=== PATIENT | female | born 1955 | race American Indian/Alaskan Native ===

== ENCOUNTER 2017-01-21 21:58 | Inpatient (IN) | payer MEDICARE ==
[2017-01-21 23:11] LABS: Basophils % (Auto) 0.7 % (0.0-1.8); Eosinophils % (Auto) 2.4 % (0.0-4.3); Hematocrit 37.4 % (30.3-42.9); Hemoglobin 12.2 gm/dl (10.1-14.3); Mean Corpuscular HGB Conc 33 % (30-34); Mean Corpuscular Hemoglobin 26 pg (28-32); Mean Corpuscular Volume 78 fl (79-97); Platelet Count 285 K/mm3 (140-440); Red Cell Distribution Width 15.7 % (13.2-15.2); White Blood Count 8.6 K/mm3 (4.5-11.0)
[2017-01-21 23:20] LABS: INR 0.96 (0.87-1.13)
[2017-01-21 23:26] LABS: Anion Gap 18 mmol/L; BUN/Creatinine Ratio 14.28; Blood Urea Nitrogen 10 mg/dL (7-17); Calcium 8.7 mg/dL (8.4-10.2); Carbon Dioxide 27 mmol/L (22-30); Chloride 104.7 mmol/L (98-107); Glucose 103 mg/dL (65-100); Potassium 3.6 mmol/L (3.6-5.0); Sodium 146 mmol/L (137-145)
--- NOTE | 2017-01-22 08:30 | Emergency Department Report ---
ED General Adult HPI - General Chief complaint: Chest Pain Stated complaint: CHEST PAIN/MH EVAL Time Seen by Provider: 01/22/17 08:27 Source: patient Mode of arrival: Stretcher Limitations: No Limitations - History of Present Illness Initial comments: Patient states that she has a bipolar disorder and she is noncompliant with her medications. She told the nurses that she wanted to lay in the road so car would run over her. She admits to depression and suicidal ideation. When I entered the room the patient told me she didn't want to be hooked up to the radiographer cardiac catheterization because the monitor is talking to her. She said this with berta indifference and was not at all agitated. Not withstanding this the patient states that she has chest pain on exertion which started yesterday and lasted for 2-1/2 hours. While I was talking to her she said that it actually was still present. She states the pain radiates to her right arm. She does not complain of associated symptoms. The patient tells me that she has a history of atrial fibrillation. She is no longer on anticoagulants or any other medicines. She claims that she was treated for this and a "minor heart attack" 5 years ago at . -: days(s) Location: chest Radiation: other (r arm) Severity scale (0 -10): 7 Quality: aching Improves with: none Worsens with: none Associated Symptoms: denies other symptoms Treatments Prior to Arrival: none - Related Data Home Medications Medication Instructions Recorded Confirmed Last Taken No Known Home Medications [No 01/22/17 01/22/17 Unknown Reported Home Medications] Allergies Allergy/AdvReac Type Severity Reaction Status Date / Time No Known Allergies Allergy Unverified 01/21/17 22:29 ED Review of Systems ROS: Stated complaint: CHEST PAIN/MH EVAL Other details as noted in HPI Constitutional: denies: chills, fever Eyes: denies: eye pain, eye discharge, vision change ENT: denies: ear pain, throat pain Respiratory: denies: cough, shortness of breath, wheezing Cardiovascular: chest pain. denies: palpitations Endocrine: no symptoms reported Gastrointestinal: denies: abdominal pain, nausea, diarrhea Genitourinary: denies: urgency, dysuria, discharge Musculoskeletal: denies: back pain, joint swelling, arthralgia Skin: denies: rash, lesions Neurological: denies: headache, weakness, paresthesias Psychiatric: depression, suicidal thoughts. denies: anxiety Hematological/Lymphatic: denies: easy bleeding, easy bruising ED Past Medical Hx - Past Medical History Previous Medical History?: Yes Hx Hypertension: Yes Hx Psychiatric Treatment: Yes Additional medical history: a fib, ddd, - Surgical History Past Surgical History?: No - Social History Substance Use Type: None - Medications Home Medications: Home Medications Medication Instructions Recorded Confirmed Last Taken Type No Known Home Medications [No 01/22/17 01/22/17 Unknown History Reported Home Medications] ED Physical Exam - General Limitations: No Limitations General appearance: alert, in no apparent distress - Head Head exam: Present: atraumatic, normocephalic - Eye Eye exam: Present: normal appearance, PERRL, EOMI. Absent: scleral icterus - ENT ENT exam: Present: normal exam, mucous membranes moist - Neck Neck exam: Present: normal inspection - Respiratory Respiratory exam: Present: normal lung sounds bilaterally. Absent: respiratory distress - Cardiovascular Cardiovascular Exam: Present: regular rate, normal rhythm. Absent: systolic murmur, diastolic murmur, rubs, gallop - GI/Abdominal GI/Abdominal exam: Present: soft, normal bowel sounds. Absent: distended, tenderness, guarding, rebound, rigid - Extremities Exam Extremities exam: Present: normal inspection, normal capillary refill. Absent: tenderness, pedal edema, joint swelling, calf tenderness - Back Exam Back exam: Present: normal inspection - Neurological Exam Neurological exam: Present: alert, oriented X3, CN II-XII intact. Absent: motor sensory deficit - Psychiatric Psychiatric exam: Present: normal affect, normal mood - Skin Skin exam: Present: warm, dry, intact, normal color. Absent: rash ED Course Vital Signs 01/21/17 01/22/17 01/22/17 22:06 05:52 08:44 Temperature 98.7 F 98.3 F 98.4 F Pulse Rate 76 74 78 Respiratory 17 16 16 Rate Blood Pressure 186/106 139/85 Blood Pressure 174/78 [Left] O2 Sat by Pulse 100 99 99 Oximetry - Reevaluation(s) Reevaluation #1: The patient has the potential risk factors for coronary artery disease. Therefore she will be admitted to the hospitalist service for medical clearance prior to psychiatric disposition complete her medical clearance. I will issue a 1013. 01/22/17 10:40 ED Medical Decision Making - Lab Data Result diagrams: 01/21/17 22:52 01/21/17 22:52 Laboratory Results - last 24 hr 01/21/17 01/21/17 01/21/17 22:52 22:52 22:52 WBC 8.6 RBC 4.80 Hgb 12.2 Hct 37.4 MCV 78 L MCH 26 L MCHC 33 RDW 15.7 H Plt Count 285 Lymph % (Auto) 32.5 [place] % (Auto) 7.2 Eos % (Auto) 2.4 Baso % (Auto) 0.7 Lymph # 2.8 [place] # 0.6 Eos # 0.2 Baso # 0.1 Seg Neutrophils % 57.2 Seg Neutrophils # 4.9 PT INR APTT Sodium 146 H Potassium 3.6 Chloride 104.7 Carbon Dioxide 27 Anion Gap 18 BUN 10 Creatinine 0.7 Estimated GFR > 60 BUN/Creatinine Ratio 14.28 Glucose 103 H Calcium 8.7 Troponin T < 0.010 HCG, Qual Negative 01/21/17 01/22/17 01/22/17 22:52 03:01 04:28 WBC RBC Hgb Hct MCV MCH MCHC RDW Plt Count Lymph % (Auto) [place] % (Auto) Eos % (Auto) Baso % (Auto) Lymph # [place] # Eos # Baso # Seg Neutrophils % Seg Neutrophils # PT 13.3 INR 0.96 APTT 31.0 Sodium Potassium Chloride Carbon Dioxide Anion Gap BUN Creatinine Estimated GFR BUN/Creatinine Ratio Glucose Calcium Troponin T < 0.010 < 0.010 HCG, Qual - EKG Data -: EKG Interpreted by Pa EKG shows normal: sinus rhythm, axis, intervals, QRS complexes, ST-T waves Rate: normal (some sinus arrhythmia.) - EKG Data Interpretation: no acute changes (serial EKGs no acute changes no interval changes) - Radiology Data Radiology results: pending Critical care attestation.: If time is entered above; I have spent that time in minutes in the direct care of this critically ill patient, excluding procedure time. ED Disposition Clinical Impression: Uncontrolled hypertension, Suicidal ideation Chest pain Qualifiers: Chest pain type: unspecified Qualified Code(s): R07.9 - Chest pain, unspecified Bipolar disorder Qualifiers: Active/Remission status: currently active Current bipolar episode type: depressed Current episode severity: severe Psychotic features: with psychotic features Qualified Code(s): F31.5 - Bipolar disorder, current episode depressed , severe, with psychotic features Disposition: DC-09 OP ADMIT IP TO THIS HOSP Is pt being admited?: Yes Does the pt Need Aspirin: Yes Condition: Stable Instructions: Hypertension (ED) Referrals: TRENT GERARDO MD [Primary Care Provider] - 3-5 Days Time of Disposition: 10:50
--- NOTE | 2017-01-22 10:27 | History and Physical Report ---
History of Present Illness Date of examination: 01/22/17 Chief complaint: Hearing voices History of present illness: 61-year-old -Citizen Of [place] female with past medical history significant for bipolar disorder, major depressive disorder, hypertension, A. fib, medication noncompliance presented to the emergency department complaining that she is heaving voices. She said she heard from Devil which tell her "lay down and ", she heard from God "keep going". Patient also expressed suicidal ideation, stating that she wanted to drive towards train track and want to be strike by train and . Patient claimed she was diagnosed with A. fib 4 years ago and she to look Coumadin for a while and discontinued. She didn't have any symptoms after that. Patient has hypertension and taking no medications. She said she has been in and out of mental institutions and was treated for bipolar and major depression but she didn't take any medication for the last 1 year. Patient didn't know what medications she has been taking. Patient also complains left-sided chest pain, sharp to aching type pain, 6 out of 10 in intensity, with radiation to the right arm, associated with mild shortness of breath and nausea. Patient denied palpitation, diaphoresis, vomiting. REVIEW OF SYSTEMS: GENERAL: no weight change, no fatigue, no fever HEAD: no head ache EYES: no blurry vision, no acute visual loss EARS: no hearing loss, no discharge, no earache NOSE: no stuffiness, no sneezing, no discharge MOUTH, THROAT AND NECK: no bleeding gums, no sore throat, no swollen neck CARDIAC: no palpitations, + dyspnea on exertion, no orthopnea, no PND, no edema , + chest pain RESPIRATORY: no shortness of breath, no wheeze, no cough, no sputum, no hemoptysis, no asthma GI: no decreased appetite, no nausea, no vomiting, no dysphagia, no diarrhea, no constipation, no abdominal pain URINARY: no change in frequency, no urgency, no polyuria, no hematuria, no incontinence MUSCULOSKELETAL: no muscle weakness, no pain, no joint stiffness NEUROLOGIC: no loss of sensation/numbness, no tingling, no tremors, no weakness/ paralysis HEMATOLOGIC: no anemia, no easy bruising SKIN: no rashes ENDOCRINE: no heat/cold intolerance, no polyuria, no polydipsia, no thyroid problems, no diabetes PSYCHIATRIC: no anxiety, no depression, + suicidal ideations Past History Past Medical History: atrial fib, hypertension, other (bipolar disorder, major depression. ) Past Surgical History: No surgical history Social history: smoking (smokes occasionally cigarettes and marijuana if she gets.), full code. denies: alcohol abuse, prescription drug abuse, IV drug use Family history: other (mentally illness runs in the family) Medications and Allergies Allergies Allergy/AdvReac Type Severity Reaction Status Date / Time No Known Allergies Allergy Unverified 01/21/17 22:29 Home Medications Medication Instructions Recorded Confirmed Last Taken Type ALPRAZolam [Xanax TAB] 2 mg PO TID PRN 01/22/17 01/22/17 Unknown History Exam - Physical Exam Narrative exam: Not in cardiopulmonary distress. The patient is obese. Vital signs as documented. Head exam is unremarkable. No scleral icterus . Neck is without jugular venous distension, thyromegaly, or carotid bruits. Lungs are clear to auscultation. Cardiac exam reveals regular rate and Rhythm. First and second heart sounds normal. No murmurs, rubs or gallops. Abdominal exam reveals normal bowel sounds, no masses, no organomegaly and no aortic enlargement. Extremities are nonedematous and both femoral and pedal pulses are normal. CASING GRADER: Alert and oriented 3. No focal weakness. - Constitutional Vitals: Temp Pulse Resp BP Pulse Ox 98.4 F 78 16 174/78 99 01/22/17 08:44 01/22/17 08:44 01/22/17 08:44 01/22/17 08:44 01/22/17 08:44 Results - Labs CBC & Chem 7: 01/21/17 22:52 01/21/17 22:52 Labs: Laboratory Last Values WBC 8.6 K/mm3 (4.5-11.0) 01/21/17 22:52 RBC 4.80 M/mm3 (3.65-5.03) 01/21/17 22:52 Hgb 12.2 gm/dl (10.1-14.3) 01/21/17 22:52 Hct 37.4 % (30.3-42.9) 01/21/17 22:52 MCV 78 fl (79-97) L 01/21/17 22:52 MCH 26 pg (28-32) L 01/21/17 22:52 MCHC 33 % (30-34) 01/21/17 22:52 RDW 15.7 % (13.2-15.2) H 01/21/17 22:52 Plt Count 285 K/mm3 (140-440) 01/21/17 22:52 Lymph % (Auto) 32.5 % (13.4-35.0) 01/21/17 22:52 [place] % (Auto) 7.2 % (0.0-7.3) 01/21/17 22:52 Eos % (Auto) 2.4 % (0.0-4.3) 01/21/17 22:52 Baso % (Auto) 0.7 % (0.0-1.8) 01/21/17 22:52 Lymph # 2.8 K/mm3 (1.2-5.4) 01/21/17 22:52 [place] # 0.6 K/mm3 (0.0-0.8) 01/21/17 22:52 Eos # 0.2 K/mm3 (0.0-0.4) 01/21/17 22:52 Baso # 0.1 K/mm3 (0.0-0.1) 01/21/17 22:52 Seg Neutrophils % 57.2 % (40.0-70.0) 01/21/17 22:52 Seg Neutrophils # 4.9 K/mm3 (1.8-7.7) 01/21/17 22:52 PT 13.3 Sec. (12.2-14.9) 01/21/17 22:52 INR 0.96 (0.87-1.13) 01/21/17 22:52 APTT 31.0 Sec. (24.2-36.6) 01/21/17 22:52 Sodium 146 mmol/L (137-145) H 01/21/17 22:52 Potassium 3.6 mmol/L (3.6-5.0) 01/21/17 22:52 Chloride 104.7 mmol/L (98-107) 01/21/17 22:52 Carbon Dioxide 27 mmol/L (22-30) 01/21/17 22:52 Anion Gap 18 mmol/L 01/21/17 22:52 BUN 10 mg/dL (7-17) 01/21/17 22:52 Creatinine 0.7 mg/dL (0.7-1.2) 01/21/17 22:52 Estimated GFR > 60 ml/min 01/21/17 22:52 BUN/Creatinine Ratio 14.28 % 01/21/17 22:52 Glucose 103 mg/dL (65-100) H 01/21/17 22:52 Calcium 8.7 mg/dL (8.4-10.2) 01/21/17 22:52 Troponin T < 0.010 ng/mL (0.00-0.029) 01/22/17 04:28 HCG, Qual Negative (Negative) 01/21/17 22:52 Assessment and Plan Assessment and plan: Major depression, bipolar disorder, suicidal ideation - Patient has consented placed - Patient is on 1013 Anxiety - Patient is on home dose of Xanax Chest pain -Cardiac enzymes are negative -Stress test is ordered History of A. fib -Patient is currently in sinus rhythm and rate is controlled Hypertension - Uncontrolled Patient is started on amlodipine DVT prophylaxis - On Lovenox Disposition - Admit to medical floor. Advance Directives: Yes VTE prophylaxis?: Chemical Plan of care discussed with patient/family: Yes
[2017-01-22] MEDS ORDERED: ASPIRIN PO ONE (10:49)
[2017-01-22] MEDS ORDERED: NITRO-BID 2% TP ONE (10:49)
--- NOTE | 2017-01-22 11:30 | XRay Report ---
AP CHEST: HISTORY: Hypertension AP view of the chest demonstrates a normal mediastinal and cardiac contour with clear lungs and normal bony and soft tissue structures. IMPRESSION: Unremarkable AP chest.
--- NOTE | 2017-01-22 11:50 | Admit Criteria Form ---
Admission Criteria Documentation: GENERAL ADMISSION CRITERIA (Place 'X' for any and all applicable criteria): Admission is indicated for ANY ONE of the following: [ ]I. Hemodynamic instability as indicated by ANY ONE of the following(1)(2) (3)(4)(5): [ ]a) Vital sign abnormality not readily corrected by appropriate treatment within 12 to 24 hours indicated by ANY ONE of the following: [ ]i) Hypotension [ ]ii) Symptomatic Tachycardia unresponsive to treatment (eg , analgesia, fluids, sedation as indicated) [ ]iii) Orthostatic vital sign changes unresponsive to treatment (eg, fluids) [ ]b) Vital sign abnormality that is severe indicated by ANY ONE of the following: [ ]i) Inadequate perfusion indicated by ANY ONE of the following: [ ]1) Lactic acidosis (greater than 2 mmol/L) [ ]2) New abnormal capillary refill (greater than 3 seconds) [ ]3) Other metabolic acidosis (arterial pH less than 7.35) not otherwise explained [ ]4) Reduced urine output [ ]5) Altered mental status [ ]6) Myocardial Ischemia [ ]v) Mean arterial pressure[A] less than 60 mm Hg [ ]vi) Mean arterial pressure[A] less than 70 mm Hg after 30 minutes of appropriate treatment (eg, fluid resuscitation) [ ]vii) IV inotropic or vasopressor medication required to maintain adequate blood pressure or perfusion [ ]viii) Sustained heart rate greater than 120 beats per minute in adult or child 6 years or older[B]] [ ]II. Hypertension requiring inpatient treatment as indicated by ANY ONE of the following(6)(7)(8): [ ]a) SBP greater than 220 mm Hg or DBP greater than 120 mm Hg despite treatment [ ]b) SBP greater than 140 mm Hg or DBP greater than 100 mm Hg with evidence of acute end organ damage as indicated by ANY ONE of the following: [ ]i) Encephalopathy [ ]ii) Acute renal failure as indicated by new onset of ANY ONE of the following(9)(10)(11)(12)(13): [ ]1) A 3-fold rise in serum creatinine from baseline [ ]2) Serum creatinine greater than 4 mg/dL ( 354 micromoles/L) with acute rise greater than 0.5 mg/dL (44.2 micromoles/L) [ ]3) Reduction of more than 75% in estimated glomerular filtration rate from baseline [ ]4) Estimated glomerular filtration rate less than 35 mL/min/1.73m2 (0.59 mL/sec/1.73m2) in child up to 18 years of age [ ]5) Cessation of urine output indicated by ALL of the following: [ ]A. Adequate volume status [ ]B. Inadequate urine output as indicated by ANY ONE of the following: [ ]a. Urine output less than 0.3 mL/kg/hr for 24 hours [ ]b. Anuria (urine output less than 0.1 mL/kg/hr) for 12 hours [ ]iii) Aortic dissection [ ]iv) Myocardial ischemia [ ]v) Left ventricular heart failure [ ]vi) Retinal hemorrhage [ ]vii) Other significant finding [ ]c) Hypertension in child requiring inpatient treatment as indicated by ALL of the following(14)(15)(16): [ ]i) Outpatient treatment not effective, not available, or not appropriate [ ]ii) SBP or DBP greater than 95th percentile for age [ ]iii) Evidence of acute end organ damage as indicated by ANY ONE of the following: [ ]1) Altered mental status [ ]2) Acute renal failure as indicated by new onset of ANY ONE of the following(9)(10)(11)(12)(13): [ ]A. A 3-fold rise in serum creatinine from baseline [ ]B. Serum creatinine greater than 4 mg/dL (354 micromoles/L) with acute rise greater than 0.5 mg/dL (44.2 micromoles/L) [ ]C. Reduction of more than 75% in estimated glomerular filtration rate from baseline [ ]D. Estimated glomerular filtration rate less than 35 mL/min/1.73m2 (0.59 mL/sec/1.73m2)in child up to 18 years of age [ ]E. Cessation of urine output indicated by ALL of the following: [ ]a. Adequate volume status [ ]b. Inadequate urine output as indicated by ANY ONE of the following: [ ]1) Urine output less than 0.3 mL/kg/hr for 24 hours [ ]2) Anuria (urine output less than 0.1 mL/kg/hr) for 12 hours [ ]3) Severe headache [ ]4) Visual disturbance [ ]5) Retinal hemorrhage [ ]6) Other significant finding [ ]III. Acute cardiac or peripheral ischemia as indicated by ANY ONE of the following: [ ]a) Acute coronary syndrome(17)(18) [ ]b) Acute peripheral ischemia (eg, pulseless, cool, mottled, or cyanotic extremity)(19) [ ]IV. Cardiac arrhythmias or findings of immediate concern indicated by ANY ONE of the following(20)(21): [ ]a) Heart rhythms that are inherently dangerous or unstable indicated by ANY ONE of the following(22)(23)(24): [ ]i) Resuscitated ventricular fibrillation or cardiac arrest [ ]ii) Ventricular escape rhythm [ ]iii) Sustained ventricular tachycardia (30 seconds or more of ventricular rhythm at greater than 100 beats per minute) [ ]iv) Nonsustained ventricular tachycardia and ANY ONE of the following: [ ]1) Suspected cardiac ischemia as cause or consequence of ventricular tachycardia [ ]2) In setting of acute myocarditis [ ]b) Unstable cardiac conduction defects indicated by ANY ONE of the following(24)(25)(26): [ ]i) Type II second-degree atrioventricular block [ ]ii) Third-degree atrioventricular block [ ]iii) New-onset left bundle branch block with suspected myocardial ischemia [ ]c) Any heart rhythm and ANY ONE of the following(22)(23)(27)(28)( 29): [ ] i) Continuous long-term ECG monitoring needed (eg, initiation of drug requiring monitoring for more than 24 hours) [ ] ii) Patient has automatic implanted cardioverter defibrillator that is repeatedly firing, malfunctioning, or in need of immediate adjustment of settings beyond the scope of ambulatory or observation care. [ ]d) Heart rhythms of concern due to ANY ONE of the following: [ ]i) Hypotension [ ]ii) Respiratory distress [ ]iii) Association with other significant symptoms (eg, bradycardia with syncope or ongoing dizziness, supraventricular tachycardia with chest pain) (27)(28) (30) [ ] V. Severe heart failure as indicated by ANY ONE of the following ( 31)(32): [ ]a) Respiratory distress [ ]b) Hypotension [ ]c) Anasarca (refractory to outpatient therapy) [ ]d) Cardiac arrhythmias of immediate concern [ ]e) Myocardial ischemia [ ]. Respiratory abnormalities, including ANY ONE of the following(33)(34) (35)(36): [ ]a) Respiratory rate greater than 30 breaths per minute unresponsive to treatment [A] [ ]b) New saturation of arterial oxygen less than 90% [ ]c) New partial pressure of carbon dioxide greater than 44 mm Hg ( 5.9 kPa) [ ]d) Supplemental oxygen or respiratory treatments needed that are new or not performable at other levels of care [ ]e) New-onset cyanosis [ ]f) Inability to protect airway [ ]g) Chronic lung disease with severe deterioration (not responsive to emergency and observation care treatment as appropriate) as indicated by ANY ONE of the following(34)(36 ): [ ]i) SaO2 5% below baseline in patient with chronic hypoxemia [ ]ii) New requirement for supplemental oxygen to keep SaO2 at baseline or acceptable level [ ]iii) Required supplemental oxygen performable only in acute inpatient setting [ ]iv) Severe airflow or ventilation abnormalities [ ]v) Previously mobile patient unable to walk between rooms [ ]vi Inability to eat or sleep due to dyspnea [ ]vii) Rapid rate of exacerbation onset [ ]viii) Altered mental status ]VII. Severe airflow or ventilation abnormalities (not responsive to emergency and observation care treatment as appropriate) as indicated by ANY ONE of the following(33)(34)(35)(37): [ ]a) PCO2 greater than 42 mm Hg (5.6 kPa) and pH less than 7.35 (new ) [ ]b) Documented PCO2 increased more than 5 mm Hg (0.7 kPa) from disease baseline [ ]c) Airflow measurements [B] less than 60% of previous best or predicted (eg, peak expiratory flow rate less than 300 L/minute) despite intensive emergent treatment [C] [ ]d) Required respiratory treatments that are performable only in acute inpatient setting [ ]VIII. Impending or actual respiratory arrest ( Also use Respiratory Failure GRG for severe respiratory disease and long-term mechanical ventilation patients) [ ]IX. Neurologic abnormalities, including ANY ONE of the following: [ ]a) New findings that suggest ANY ONE of the following: [ ]i) PHOTOGRAPHIC [employer]PER[employer] infection(38) [ ]ii) Cerebral bleeding, ischemia, or vasospasm(39)(40) [ ]iii) Increased intracranial pressure, hydrocephalus, or cerebral edema(41)(42)(43) [ ]iv) Spinal cord injury(44) [ ]b) Uncontrolled seizures(45) [ ]c) New-onset coma (eg, [place] coma scale score less than 9) or unexplained abnormal mental status (eg, [place] coma scale score less than 14) [D](41)(46)(47) [ ]X. New-onset severe neurologic findings requiring inpatient care; examples include(42)(48)(49): [ ]a) Papilledema [ ]b) Cerebral edema [ ]c) Mass effect on CT scan [ ]XI. Suspected acute intra-abdominal process with peritoneal signs, abdominal mass, or similar findings (50)(51)(52) [ ]XII. Severe physiologic disorder remaining after emergency or observation level care (as appropriate) as indicated by ANY ONE of the following (53): [ ]a) Significant dehydration [ ]b) Diabetic ketoacidosis [ ]c) Hyperglycemic hyperosmolar state (eg, osmolality greater than 320 mOsm/kg (mmol/kg) [ ]d) Hypoglycemia [ ]e) Other (new) acid-base disorder with pH less than 7.35 or greater than 7.5(54) [ ]f) Thyroid storm (55) [ ]g) Myxedema coma (55) [ ]XIII. Abdominal abnormalities with ANY ONE of the following(56)(57): [ ]a) Absent bowel sounds with complete ileus [ ]b) Signs of intestinal obstruction or peritonitis [E] [ ]c) Nausea and vomiting that cannot be controlled with outpatient or observation care [ ]XIV. Acute renal failure as indicated by new onset of ANY ONE of the following(9)(10)(11)(12)(13): [ ]a) A 3-fold rise in serum creatinine from baseline [ ]b) Serum creatinine greater than 4 mg/dL (354 micromoles/L) with acute rise greater than 0.5 mg/dL (44.2 micromoles/L) [ ]c) Reduction of more than 75% in estimated glomerular filtration rate from baseline [ ]d) Estimated glomerular filtration rate less than 35 mL/min/ 1.73m2 (0.59 mL/sec/1.73m2) in child up to 18 years of age [ ]e) Cessation of urine output indicated by ALL of the following: [ ]i) Adequate volume status [ ]ii) Inadequate urine output as indicated by ANY ONE of the following: [ ]1) Urine output less than 0.3 mL/kg/hr for 24 hours [ ]2) Anuria (urine output less than 0.1 mL/kg/hr) for 12 hours [ ]XV. Significant uremic complications as indicated by ANY ONE of the following(58)(59)(60): [ ]a) Outpatient therapy is ineffective or not feasible for ANY ONE of the following: [ ]i) Severe heart failure [ ]ii) Severehypertension [ ]iii) Pleural effusion [ ]iv) Pericarditis or pericardial effusion [ ]b) Cardiac arrhythmias of immediate concern [ ]c) Intractable nausea or vomiting [ ]d) Recurrent seizures [ ]e) Encephalopathy [ ]f) Bleeding abnormalities (eg, platelet dysfunction) with active (eg, gastrointestinal) bleeding [ ]g) Dialysis indicated before long-term access or ambulatory arrangements can be made [ ]h) Significant metabolic or electrolyte abnormalities (eg, severe acidosis or hyperkalemia) [ ]XVI. High fever or other high-risk infection situation as indicated by ANY ONE of the following(61)(62)(63)(64): [ ]a) Outpatient and observation care antimicrobial treatment unavailable, not effective, or not appropriate [ ]b) Documented bacteremia [ ]c) Temperature greater than 40.5 degrees C (104.9 degrees F) ( oral) [ ]d) Temperature greater than 39.5 degrees C (103.1 degrees F) ( oral) or less than 36 degrees C (96.8 degrees F) (rectal) that does not respond to e treatment and observation care [ ] XVII. Temperature less than 95 degrees F (35 degrees C)(rectal)(65) [ ] XVIII. Severe nutritional abnormalities as indicated by ALL of the following (66)(67): [ ]a) Inability to tolerate or establish sufficient oral or other enteral nutrition in outpatient setting [ ]b) Parenteral nutrition regimen need that must be implemented on inpatient basis [ ] XIX. Severe electrolyte abnormalities indicated by ALL of the following(68) (69)(70): [ ]a) Electrolytes and associated findings are not as expected for patient baseline or acceptable treatment effects. [ ]b) Severe abnormalities indicated by ANY ONE of the following: [ ]i) Sodium less than 130 mEq/L (mmol/L) (new) [ ]ii)Sodium less than 135 mEq/L (mmol/L) with ANY ONE of the following: [ ]1) Uncorrectable (to near normal or chronic baseline) after trial of outpatient and emergency treatment [ ]2) Altered mental status [ ]3) Seizures [ ]4) Severe medical etiology requiring inpatient management (eg, heart failure, hypovolemia) [ ]iii) Sodium greater than 155 mEq/L (mmol/L) [ ]iv) Sodium greater than 150 mEq/L (mmol/L) with ANY ONE of the following: [ ]1) Uncorrectable (to near normal or chronic baseline) with outpatient and emergency treatment [ ]2) Altered mental status [ ]3) Seizures [ ]4) Severe medical etiology (eg, hypovolemia, diabetes insipidus) [ ]v) Potassium less than 2.5 mEq/L (mmol/L) despite outpatient and emergency treatment [ ]vi) Potassium less than 3 mEq/L (mmol/L) with ANY ONE of the following: [ ]1) Weakness [ ]2) Cardiac abnormality (eg, arrhythmia, conduction disturbance) [ ]3) Cardiac ischemia [ ]4) Ileus [ ]5) Ongoing medical cause requiring inpatient management (eg, acute renal wasting or SIADH) [ ]6) Other severe symptoms [ ]vii) Potassium greater than 6.5 mEq/L (mmol/L) [ ]viii) Potassium greater than 5 mEq/L (mmol/L) with ANY ONE of the following: [ ]1) Uncorrectable (to near normal or chronic baseline) with outpatient and emergency treatment [ ]2) Severe ECG findings [F] [ ]3) Acute worsening of renal failure (creatinine greater than 2.5 mg/dL (221 micromoles/L) or significant elevation for age and size) [ ]4) Severe weakness [ ]5) Severe medical etiology (eg, hemolysis, infection, drug overdose) [ ]ix) Calcium less than 7 mg/dL (1.75 mmol/L) despite outpatient and emergency treatment (72) [ ]x) Calcium less than 8 mg/dL (2 mmol/L) with significant symptoms or findings; examples include(72): [ ]1) Altered mental status [ ]2) Muscle spasms [ ]3) Seizures [ ]4) Breathing difficulty [ ]5) Cardiac abnormality (eg, arrhythmia or conduction disturbance) [ ]xi) Calcium greater than 14 mg/dL (3.5 mmol/L)(72) [ ]xii) Calcium greater than 12 mg/dL (3 mmol/L) with ANY ONE of the following(72): [ ]1) Uncorrectable (to near normal or chronic baseline) with outpatient and emergency treatment [ ]2) Significant dehydration or hypovolemia as indicated by ALL of the following(70)(73)(74): [ ]A. Not resolved with initial treatments [ ]B. Clinically significant dehydration as indicated by ANY ONE of the following: [ ]a. Vomiting refractory to outpatient treatment (ie, precluding oral rehydration) [ ]b. Inability to drink [ ]c. Hypernatremia or other electrolyte abnormality unable to be corrected with outpatient and emergency treatment [ ]d. Failure to remain hydrated with outpatient therapy [ ]e. Reduced urine output [ ]f. Hypotension [ ]g. Serious cause for dehydration requiring acute hospitalization (eg, bowel obstruction, increased intracranial pressure, infectious cause) [ ]h. Child with ANY ONE of the following(75): [ ]1) Severe abdominal tenderness [ ]2) Adequate care not available at home [ ]3) Severe dehydration ( greater than 9% loss of body weight) [ ]4) Significant symptoms or findings; examples include: [ ]A. Altered mental status [ ]B. Cardiac abnormality (eg, arrhythmia, conduction disturbance) [ ]C. Malignant etiology requiring inpatient treatment [ ]xiii) Phosphorus less than 1 mg/dL (0.32 mmol/L) [ ]xiv) Phosphorus less than 1.5 mg/dL (0.48 mmol/L) with ANY ONE of the following: [ ]1) Patient unresponsive to outpatient and emergency treatment [ ]2) Significant symptoms or findings; examples include: [ ]A. Weakness [ ]B. Altered mental status [ ]C. Breathing difficulty [ ]D. Seizures [ ]E. Rhabdomyolysis [ ]xv) Phosphorus greater than 10 mg/dL (3.2 mmol/L) [ ]xvi) Phosphorus greater than 4.5 mg/dL (1.45 mmol/L) (new) with ANY ONE of the following: [ ]1) Severe medical etiology (eg, crush injury, acute renal failure) [ ]2) Associated hypocalcemia with significant findings; examples include: [ ]A. Neurologic symptoms [ ]B. Altered mental status [ ]C. Muscle spasms [ ]D. Seizures [ ]E. Breathing difficulty [ ]F. Cardiac abnormality (eg, arrhythmia, conduction disturbance) [ ]xvii) Magnesium less than 1 mg/dL (0.41 mmol/L) [ ]xviii) Magnesium less than 1.5 mg/dL (0.62 mmol/L) with ANY ONE of the following: [ ]1) Patient unresponsive to outpatient and emergency treatment [ ]2) Associated hypocalcemia with significant findings; examples include: [ ]A. Altered mental status [ ]B. Muscle spasms [ ]C. Seizures [ ]D. Breathing difficulty [ ]E. Cardiac abnormality (eg, arrhythmia , conduction disturbance) [ ]3) Associated hypokalemia (potassium less than 3 mEq/L (mmol/L)) with risk of arrhythmia [ ]xix) Magnesium greater than 4 mEq/L (2 mmol/L) [ ]xx) Magnesium greater than 2.5 mEq/L (1.25 mmol/L) with significant symptoms or findings; examples include: [ ]1) Weakness [ ]2) Altered mental status [ ]3) Cardiac abnormality (eg, arrhythmia, conduction disturbance) [ ]4) Breathing difficulty [ ]5) Severe medical etiology (eg, renal failure, hypovolemia) [ ]xxi) Uric acid greater than 20 mg/dL (1190 micromoles/L)(76) [ ]xxii) Uric acid greater than 8 mg/dL (476 micromoles/L) with significant symptoms or findings of tumor lysis syndrome; examples include(76): [ ]1) Creatinine greater than 1.5 times upper limit of normal [ ]2) Cardiac abnormality (eg, arrhythmia, conduction disturbance) [ ]3) Seizure [ ]XX. Acute blood loss causing significant abnormality as indicated by ANY ONE of the following(77)(78): [ ]a) Hemoglobin less than 10 g/dL (100 g/L) (not baseline) [ ]b) Hematocrit less than 30% (0.30) (not baseline) [ ]c) Repeat hematocrit decreased more than 2% (0.02) [ ]d) Uncontrolled bleeding [ ]XXI. Severe anemia indicated by ANY ONE of the following(78)(79): [ ]a) Altered mental status [ ]b) Chest pain [ ]c) Exertional dyspnea [ ]d) Syncope [ ]e) Other findings suggesting inadequate perfusion [ ]f) Treatment with transfusion or volume replacement is ineffective at resolving ANY ONE of the following [G]: [ ]i) Tachycardia for age [ ]ii) Orthostatic vital sign changes as indicated by ANY ONE of the following(80): [ ]1) Fall in SBP of 20 mm Hg or more 1 to 3 minutes after patient sits or stands from recumbent position [ ]2) Fall in DBP of 10 mm Hg or more 1 to 3 minutes after patient sits or stands from recumbent position [ ]XXII. High-risk low platelet count as indicated by ANY ONE of the following( 81)(82): [ ]a) Severe or life-threatening bleeding (eg, intracranial, major gastrointestinal, or extensive mucosal bleeding), with any reduced platelet count [ ]b) Platelet count less than 20,000/mm3 (20 x109/L) with any active bleeding [ ]c) Platelet count less than 10,000/mm3 (10 x109/L) with minor purpura or petechiae [ ]d) Platelet count less than 5000/mm3 (5 x109/L) [ ]e) Low platelet count with hemolytic anemia [ ]XXIII. Disseminated intravascular coagulation(77)(83) [ ]XXIV. Severe adverse drug or systemic toxin reaction requiring inpatient treatment; examples include(84)(85): [ ]a) Serotonin syndrome(86) [ ]b) Neuroleptic malignant syndrome(86) [ ]c) Cholinergic syndrome with severe symptoms (eg, bronchorrhea, weakness, mental status changes, seizures) [ ]d) Sympathetic syndrome with severe symptoms (eg, seizures, mental status changes, cardiac dysrhythmias) [ ]e) Anticholinergic syndrome [ ]XXV. Severe pain requiring acute inpatient management as indicated by ALL of the following (87)(88)(89): [ ]a) Continuous or frequent (eg, every 2 to 4 hours) parenteral analgesics required [H] [ ]b) Rapid improvement expected from treatment or acute intervention (eg, surgery, anesthesia procedure) [X ]XXVI.Severe behavioral health issues judged unmanageable at a lower level of care (eg, residential) in a patient who is ANY ONE of the following(91) [X ]a) Acutely suicidal []b) A danger to self (eg, self-mutilating or suicidal behavior) [ ]c) A danger to others (eg, assaultive or homicidal behavior) [ ]d) Incapacitated because of grave disability (eg, inability to provide for self at lower level of care) (92) [X ]XXVII. Inpatient monitoring needed; examples include(1)(3)(87)(93)(94)(95)( 96): [ ]a) Vital signs, neurologic signs, or vascular checks more frequently than every 4 hours [ X]b) Cardiac or respiratory monitoring beyond the scope (eg, over 24 hours) of observation care [ ]c) Pulmonary artery catheter monitoring [ ]d) Suspected compartment syndrome(97) (98) [ ]e) Cerebral bleeding, hydrocephalus, or vasospasm monitoring [ ]f) Increased intracranial pressure or cerebral edema monitoring [ ]g) monitoring [ ]XXVIII. Treatment requiring inpatient care; examples include: [ ]a) IV fluid to replace significant ongoing losses (greater than 3 L/m2 per day)(53) [ ]b) High concentration oxygen (greater than 40%)(33)(99)(100) [ ]c) Frequent respiratory therapy (more frequently than every 4 hours) to maintain airflow rates greater than 60% of baseline(33)(99)(100) [ ]d) Epidural analgesia(87) [ ]e) IV anticoagulation, vasoactive, or antiarrhythmic medication(19 )(23) [ ]f) Acute thrombolytics (generally require 24 hours of observation )(101)(102) [ ]XXIX. Emergency procedures needed; examples include: [ ]a) Emergency inpatient surgery [ ]b) Temporary pacemaker placement(103) [ ]c) Chest tube placement with active evacuation (eg, suction, drainage)(104) [ ]d) Emergent cardioversion(105) [ ]e) Emergent cardiac or vascular procedures (eg, cardiac catheterization, angioplasty) (17)(18) [ ]f) Emergent dialysis access placement and institution(10)(106) [ ]g) Emergent pericardiocentesis(107) [ ]h) Emergent plasmapheresis or leukapheresis(83) [ ]i) Emergent tracheostomy The original [employer] content created by [employer] has been revised. The portions of the content which have been revised are identified through the use of italic text or in bold, and [employer] has neither reviewed nor approved the modified material. All other unmodified content is copyright [employer]. Please see references footnoted in the original [employer] edition 2016 Admission Criteria Met: Yes
[2017-01-22] MEDS ORDERED: ALUM-MAG HYDROX-SIMETH 200-200-20MG/5ML PO PRN (12:00)
[2017-01-22] MEDS ORDERED: MILK OF MAGNESIA PO PRN (12:00)
[2017-01-22] MEDS ORDERED: MORPHINE IV PRN (12:00)
[2017-01-22] MEDS ORDERED: DULCOLAX PR PRN (12:00)
[2017-01-22 13:15] LABS: Urine Drugs of Abuse Note Disclamer
[2017-01-22] MEDS: LOVENOX SUB-Q SCH (15:48)
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
[2017-01-22] MEDS: XANAX PO PRN (23:39)
[2017-01-22] MEDS: TYLENOL PO PRN (23:39)
[2017-01-23 07:14] LABS: Basophils % (Auto) 0.7 % (0.0-1.8); Eosinophils % (Auto) 3.2 % (0.0-4.3); Hematocrit 34.1 % (30.3-42.9); Hemoglobin 11.1 gm/dl (10.1-14.3); Mean Corpuscular HGB Conc 32 % (30-34); Mean Corpuscular Volume 78 fl (79-97); Platelet Count 254 K/mm3 (140-440); Red Blood Count 4.36 M/mm3 (3.65-5.03); Red Cell Distribution Width 15.9 % (13.2-15.2); White Blood Count 6.6 K/mm3 (4.5-11.0)
[2017-01-23 07:15] LABS: Mean Corpuscular Hemoglobin 25 pg (28-32)
[2017-01-23 07:26] LABS: Anion Gap 12 mmol/L; Blood Urea Nitrogen 9 mg/dL (7-17); Calcium 8.3 mg/dL (8.4-10.2); Carbon Dioxide 30 mmol/L (22-30); Chloride 105.8 mmol/L (98-107); Glucose 96 mg/dL (65-100); Potassium 3.1 mmol/L (3.6-5.0); Sodium 145 mmol/L (137-145)
[2017-01-23] MEDS ORDERED: ASPIRIN PO ONE (08:50)
[2017-01-23] MEDS: celeXA PO SCH (11:00)
[2017-01-23] MEDS: TYLENOL PO PRN (11:11)
[2017-01-23] MEDS: XANAX PO PRN ×2 (11:11→21:31)
[2017-01-23] MEDS: LOVENOX SUB-Q SCH (13:00)
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
[2017-01-23] MEDS ORDERED: K-DUR PO ONE (17:38)
--- NOTE | 2017-01-23 17:40 | Progress Note ---
Assessment and Plan Assessment and plan: Major depression, bipolar disorder, suicidal ideation - Consult appreciated - On Celexa - Patient is on 1013 Anxiety - Patient is on home dose of Xanax Chest pain -Cardiac enzymes are negative -Stress test is ordered History of A. fib -Patient is currently in sinus rhythm and rate is controlled Hypertension - Uncontrolled Patient is started on amlodipine Hypokalemia - Repleted DVT prophylaxis - On Lovenox Disposition - Was transferred to psych facility after stress test. History Interval history: Patient was seen and evaluated this morning, patient's complaining chest pain, patient denied suicidal ideation. Hospitalist Physical - Physical exam Narrative exam: Not in cardiopulmonary distress. The patient is obese. Vital signs as documented. Head exam is unremarkable. No scleral icterus . Neck is without jugular venous distension, thyromegaly, or carotid bruits. Lungs are clear to auscultation. Cardiac exam reveals regular rate and Rhythm. First and second heart sounds normal. No murmurs, rubs or gallops. Abdominal exam reveals normal bowel sounds, no masses, no organomegaly and no aortic enlargement. Extremities are nonedematous and both femoral and pedal pulses are normal. 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 No focal weakness. - Constitutional Vitals: Temp Pulse Resp BP Pulse Ox 97.7 F 124 H 20 170/100 97 01/23/17 16:47 01/23/17 16:47 01/23/17 16:47 01/23/17 16:47 01/23/17 16:47 Results - Labs CBC & Chem 7: 01/23/17 06:58 01/23/17 06:58 Labs: Laboratory Last Values WBC 6.6 K/mm3 (4.5-11.0) 01/23/17 06:58 RBC 4.36 M/mm3 (3.65-5.03) 01/23/17 06:58 Hgb 11.1 gm/dl (10.1-14.3) 01/23/17 06:58 Hct 34.1 % (30.3-42.9) 01/23/17 06:58 MCV 78 fl (79-97) L 01/23/17 06:58 MCH 25 pg (28-32) L 01/23/17 06:58 MCHC 32 % (30-34) 01/23/17 06:58 RDW 15.9 % (13.2-15.2) H 01/23/17 06:58 Plt Count 254 K/mm3 (140-440) 01/23/17 06:58 Lymph % (Auto) 45.2 % (13.4-35.0) H 01/23/17 06:58 [place] % (Auto) 7.8 % (0.0-7.3) H 01/23/17 06:58 Eos % (Auto) 3.2 % (0.0-4.3) 01/23/17 06:58 Baso % (Auto) 0.7 % (0.0-1.8) 01/23/17 06:58 Lymph # 3.0 K/mm3 (1.2-5.4) 01/23/17 06:58 [place] # 0.5 K/mm3 (0.0-0.8) 01/23/17 06:58 Eos # 0.2 K/mm3 (0.0-0.4) 01/23/17 06:58 Baso # 0.0 K/mm3 (0.0-0.1) 01/23/17 06:58 Seg Neutrophils % 43.1 % (40.0-70.0) 01/23/17 06:58 Seg Neutrophils # 2.9 K/mm3 (1.8-7.7) 01/23/17 06:58 PT 13.3 Sec. (12.2-14.9) 01/21/17 22:52 INR 0.96 (0.87-1.13) 01/21/17 22:52 APTT 31.0 Sec. (24.2-36.6) 01/21/17 22:52 Sodium 145 mmol/L (137-145) 01/23/17 06:58 Potassium 3.1 mmol/L (3.6-5.0) L 01/23/17 06:58 Chloride 105.8 mmol/L (98-107) 01/23/17 06:58 Carbon Dioxide 30 mmol/L (22-30) 01/23/17 06:58 Anion Gap 12 mmol/L 01/23/17 06:58 BUN 9 mg/dL (7-17) 01/23/17 06:58 Creatinine 0.6 mg/dL (0.7-1.2) L 01/23/17 06:58 Estimated GFR > 60 ml/min 01/23/17 06:58 BUN/Creatinine Ratio 15.00 % 01/23/17 06:58 Glucose 96 mg/dL (65-100) 01/23/17 06:58 Calcium 8.3 mg/dL (8.4-10.2) L 01/23/17 06:58 Troponin T < 0.010 ng/mL (0.00-0.029) 01/22/17 04:28 HCG, Qual Negative (Negative) 01/21/17 22:52 Urine Opiates Screen Presumptive negative 01/22/17 12:52 Urine Methadone Screen Presumptive negative 01/22/17 12:52 Ur Barbiturates Screen Presumptive negative 01/22/17 12:52 Ur Phencyclidine Scrn Presumptive negative 01/22/17 12:52 Ur Amphetamines Screen Presumptive negative 01/22/17 12:52 U Benzodiazepines Scrn Presumptive negative 01/22/17 12:52 Urine Cocaine Screen Presumptive negative 01/22/17 12:52 U Marijuana (THC) Screen Presumptive positive 01/22/17 12:52 Drugs of Abuse Note Disclamer 01/22/17 12:52
[2017-01-24] MEDS ORDERED: APRESOLINE IV PRN (00:08)
[2017-01-24 06:33] LABS: Eosinophils % (Auto) 2.5 % (0.0-4.3); Hemoglobin 11.6 gm/dl (10.1-14.3); Mean Corpuscular HGB Conc 32 % (30-34); Mean Corpuscular Hemoglobin 25 pg (28-32); Mean Corpuscular Volume 77 fl (79-97); Platelet Count 272 K/mm3 (140-440); Red Blood Count 4.65 M/mm3 (3.65-5.03); Red Cell Distribution Width 15.9 % (13.2-15.2); White Blood Count 6.4 K/mm3 (4.5-11.0)
[2017-01-24 06:53] LABS: Anion Gap 13 mmol/L; Blood Urea Nitrogen 14 mg/dL (7-17); Calcium 8.5 mg/dL (8.4-10.2); Carbon Dioxide 29 mmol/L (22-30); Chloride 103.9 mmol/L (98-107); Glucose 93 mg/dL (65-100); Potassium 3.8 mmol/L (3.6-5.0); Sodium 142 mmol/L (137-145)
[2017-01-24] MEDS ORDERED: LEXISCAN IV ONE ×2 (10:13→10:23)
--- NOTE | 2017-01-24 11:22 | Event Note ---
Date: 01/24/17 Stress MPI ths am: 1. Normal perfusion scan without evidence of ischemia or prior infarct 2. Normal LV fxn (54%) w/o evidence of TID
[2017-01-24] MEDS: LOVENOX SUB-Q SCH (11:46)
[2017-01-24] MEDS: celeXA PO SCH (11:46)
[2017-01-24] MEDS: XANAX PO PRN ×2 (11:50→22:12)
--- NOTE | 2017-01-24 15:42 | Progress Note ---
Assessment and Plan Assessment and plan: Major depression, bipolar disorder, suicidal ideation - Psych consult appreciated - On Celexa - Patient is on 1013 - Plan is to send to inpatient psychiatry Anxiety - Patient is on home dose of Xanax Chest pain -Cardiac enzymes are negative -Stress test is negative History of A. fib -Patient is currently in sinus rhythm and rate is controlled Hypertension - Uncontrolled - Amlodipine was started Hypokalemia - Resolved DVT prophylaxis - On Lovenox Disposition - Patient is cleared medically to be transferred to inpatient psych facility. History Interval history: Patient was seen and evaluated this morning, patient's chest pain subsided, patient denied suicidal ideation. Hospitalist Physical - Physical exam Narrative exam: Not in cardiopulmonary distress. The patient is obese. Vital signs as documented. Head exam is unremarkable. No scleral icterus . Neck is without jugular venous distension, thyromegaly, or carotid bruits. Lungs are clear to auscultation. Cardiac exam reveals regular rate and Rhythm. First and second heart sounds normal. No murmurs, rubs or gallops. Abdominal exam reveals normal bowel sounds, no masses, no organomegaly and no aortic enlargement. Extremities are nonedematous and both femoral and pedal pulses are normal. 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 No focal weakness. - Constitutional Vitals: Temp Pulse Resp BP Pulse Ox 98.9 F 90 20 168/96 99 01/24/17 11:40 01/24/17 11:40 01/24/17 11:40 01/24/17 11:40 01/24/17 11:40 Results - Labs CBC & Chem 7: 01/24/17 05:43 01/24/17 05:43 Labs: Laboratory Last Values WBC 6.4 K/mm3 (4.5-11.0) 01/24/17 05:43 RBC 4.65 M/mm3 (3.65-5.03) 01/24/17 05:43 Hgb 11.6 gm/dl (10.1-14.3) 01/24/17 05:43 Hct 36.0 % (30.3-42.9) 01/24/17 05:43 MCV 77 fl (79-97) L 01/24/17 05:43 MCH 25 pg (28-32) L 01/24/17 05:43 MCHC 32 % (30-34) 01/24/17 05:43 RDW 15.9 % (13.2-15.2) H 01/24/17 05:43 Plt Count 272 K/mm3 (140-440) 01/24/17 05:43 Lymph % (Auto) 37.5 % (13.4-35.0) H 01/24/17 05:43 [place] % (Auto) 7.5 % (0.0-7.3) H 01/24/17 05:43 Eos % (Auto) 2.5 % (0.0-4.3) 01/24/17 05:43 Baso % (Auto) 1.0 % (0.0-1.8) 01/24/17 05:43 Lymph # 2.4 K/mm3 (1.2-5.4) 01/24/17 05:43 [place] # 0.5 K/mm3 (0.0-0.8) 01/24/17 05:43 Eos # 0.2 K/mm3 (0.0-0.4) 01/24/17 05:43 Baso # 0.1 K/mm3 (0.0-0.1) 01/24/17 05:43 Seg Neutrophils % 51.5 % (40.0-70.0) 01/24/17 05:43 Seg Neutrophils # 3.3 K/mm3 (1.8-7.7) 01/24/17 05:43 PT 13.3 Sec. (12.2-14.9) 01/21/17 22:52 INR 0.96 (0.87-1.13) 01/21/17 22:52 APTT 31.0 Sec. (24.2-36.6) 01/21/17 22:52 Sodium 142 mmol/L (137-145) 01/24/17 05:43 Potassium 3.8 mmol/L (3.6-5.0) D 01/24/17 05:43 Chloride 103.9 mmol/L (98-107) 01/24/17 05:43 Carbon Dioxide 29 mmol/L (22-30) 01/24/17 05:43 Anion Gap 13 mmol/L 01/24/17 05:43 BUN 14 mg/dL (7-17) 01/24/17 05:43 Creatinine 0.5 mg/dL (0.7-1.2) L 01/24/17 05:43 Estimated GFR > 60 ml/min 01/24/17 05:43 BUN/Creatinine Ratio 28.00 % 01/24/17 05:43 Glucose 93 mg/dL (65-100) 01/24/17 05:43 Calcium 8.5 mg/dL (8.4-10.2) 01/24/17 05:43 Troponin T < 0.010 ng/mL (0.00-0.029) 01/22/17 04:28 HCG, Qual Negative (Negative) 01/21/17 22:52 Urine Opiates Screen Presumptive negative 01/22/17 12:52 Urine Methadone Screen Presumptive negative 01/22/17 12:52 Ur Barbiturates Screen Presumptive negative 01/22/17 12:52 Ur Phencyclidine Scrn Presumptive negative 01/22/17 12:52 Ur Amphetamines Screen Presumptive negative 01/22/17 12:52 U Benzodiazepines Scrn Presumptive negative 01/22/17 12:52 Urine Cocaine Screen Presumptive negative 01/22/17 12:52 U Marijuana (THC) Screen Presumptive positive 01/22/17 12:52 Drugs of Abuse Note Disclamer 01/22/17 12:52 - Imaging and Cardiology Imaging and Cardiology: Cardiac stress test negative.
[2017-01-24] MEDS: NORVASC PO SCH (17:00)
--- NOTE | 2017-01-24 17:18 | Progress Note ---
Subjective - Reason for Consult Consult date: 01/24/17 Reason for consult: Psychiatry Follow-up - Chief Complaint Chief complaint: "I am better" 61 year old female seen for psychiatric evaluation while in the ER. Today patient is calm and cooperative during the assessment. She stated that she feels better today. She is still consumed with her daughters choices in life ( recreational drug use). She stated that she wish she could do more for her daughter. She denies SI/HI's and AVH's. She stated resting well last night. She denies any side effects from the Celexa. Mental Status Exam - Vital signs Last Vital Signs Temp 98.9 F 01/24/17 11:40 Pulse 91 H 01/24/17 17:00 Resp 20 01/24/17 11:40 BP 145/68 01/24/17 17:00 Pulse Ox 99 01/24/17 11:40 - Exam Narrative exam: MSE: Appearance: cooperative, calm Behavior: good eye contact Speech: regular rate and tone Mood: "better" Affect: congruent to mood Thought Process: linear Thought Content: denies HI/SI's and AVH's Motor Activity: ambulatory Cognition: A/Ox 3 Insight: fair Judgment: fair I Assessment and Plan mpression: MDD, recurrent severe. Today patient is calm and cooperative during the assessment. Denies SI's. Family dynamic issues. Recommendation/Plan: Evaluate 1013 in 24 hours to determine proper dispo when medically cleared. Continue Celexa 10 mg PO Daily for depression and PTSD. Risks of prolonged QT discussed. Risks of manic symptoms discussed. She reports multiple trials of mood stabilizers with poor response.
[2017-01-25] MEDS: celeXA PO SCH (10:51)
[2017-01-25] MEDS: NORVASC PO SCH (10:52)
[2017-01-25] MEDS: XANAX PO PRN ×2 (10:52→22:33)
--- NOTE | 2017-01-25 14:35 | Progress Note ---
Assessment and Plan Assessment and plan: Major depression, bipolar disorder, suicidal ideation - Psych consult appreciated - On Celexa - Patient is on 1013 - Plan is to send to inpatient psychiatry Anxiety - Patient is on home dose of Xanax Chest pain -Cardiac enzymes are negative -Stress test is negative History of A. fib -Patient is currently in sinus rhythm and rate is controlled Hypertension - Uncontrolled - Add HCTZ Hypokalemia - Resolved DVT prophylaxis - On Lovenox Disposition - Patient is cleared medically to be transferred to inpatient psych facility. History Interval history: Patient was seen and evaluated this morning, patient's chest pain subsided, patient denied suicidal ideation. Hospitalist Physical - Physical exam Narrative exam: Not in cardiopulmonary distress. The patient is obese. Vital signs as documented. Head exam is unremarkable. No scleral icterus . Neck is without jugular venous distension, thyromegaly, or carotid bruits. Lungs are clear to auscultation. Cardiac exam reveals regular rate and Rhythm. First and second heart sounds normal. No murmurs, rubs or gallops. Abdominal exam reveals normal bowel sounds, no masses, no organomegaly and no aortic enlargement. Extremities are nonedematous and both femoral and pedal pulses are normal. 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 No focal weakness. - Constitutional Vitals: Temp Pulse Resp BP Pulse Ox 98.1 F 93 H 20 138/82 96 01/25/17 12:45 01/25/17 12:45 01/25/17 12:45 01/25/17 12:45 01/25/17 12:45 Results - Labs CBC & Chem 7: 01/24/17 05:43 01/24/17 05:43 Labs: Laboratory Last Values WBC 6.4 K/mm3 (4.5-11.0) 01/24/17 05:43 RBC 4.65 M/mm3 (3.65-5.03) 01/24/17 05:43 Hgb 11.6 gm/dl (10.1-14.3) 01/24/17 05:43 Hct 36.0 % (30.3-42.9) 01/24/17 05:43 MCV 77 fl (79-97) L 01/24/17 05:43 MCH 25 pg (28-32) L 01/24/17 05:43 MCHC 32 % (30-34) 01/24/17 05:43 RDW 15.9 % (13.2-15.2) H 01/24/17 05:43 Plt Count 272 K/mm3 (140-440) 01/24/17 05:43 Lymph % (Auto) 37.5 % (13.4-35.0) H 01/24/17 05:43 [place] % (Auto) 7.5 % (0.0-7.3) H 01/24/17 05:43 Eos % (Auto) 2.5 % (0.0-4.3) 01/24/17 05:43 Baso % (Auto) 1.0 % (0.0-1.8) 01/24/17 05:43 Lymph # 2.4 K/mm3 (1.2-5.4) 01/24/17 05:43 [place] # 0.5 K/mm3 (0.0-0.8) 01/24/17 05:43 Eos # 0.2 K/mm3 (0.0-0.4) 01/24/17 05:43 Baso # 0.1 K/mm3 (0.0-0.1) 01/24/17 05:43 Seg Neutrophils % 51.5 % (40.0-70.0) 01/24/17 05:43 Seg Neutrophils # 3.3 K/mm3 (1.8-7.7) 01/24/17 05:43 PT 13.3 Sec. (12.2-14.9) 01/21/17 22:52 INR 0.96 (0.87-1.13) 01/21/17 22:52 APTT 31.0 Sec. (24.2-36.6) 01/21/17 22:52 Sodium 142 mmol/L (137-145) 01/24/17 05:43 Potassium 3.8 mmol/L (3.6-5.0) D 01/24/17 05:43 Chloride 103.9 mmol/L (98-107) 01/24/17 05:43 Carbon Dioxide 29 mmol/L (22-30) 01/24/17 05:43 Anion Gap 13 mmol/L 01/24/17 05:43 BUN 14 mg/dL (7-17) 01/24/17 05:43 Creatinine 0.5 mg/dL (0.7-1.2) L 01/24/17 05:43 Estimated GFR > 60 ml/min 01/24/17 05:43 BUN/Creatinine Ratio 28.00 % 01/24/17 05:43 Glucose 93 mg/dL (65-100) 01/24/17 05:43 Calcium 8.5 mg/dL (8.4-10.2) 01/24/17 05:43 Troponin T < 0.010 ng/mL (0.00-0.029) 01/22/17 04:28 HCG, Qual Negative (Negative) 01/21/17 22:52 Urine Opiates Screen Presumptive negative 01/22/17 12:52 Urine Methadone Screen Presumptive negative 01/22/17 12:52 Ur Barbiturates Screen Presumptive negative 01/22/17 12:52 Ur Phencyclidine Scrn Presumptive negative 01/22/17 12:52 Ur Amphetamines Screen Presumptive negative 01/22/17 12:52 U Benzodiazepines Scrn Presumptive negative 01/22/17 12:52 Urine Cocaine Screen Presumptive negative 01/22/17 12:52 U Marijuana (THC) Screen Presumptive positive 01/22/17 12:52 Drugs of Abuse Note Disclamer 01/22/17 12:52
[2017-01-25] MEDS: LOVENOX SUB-Q SCH (17:12)
[2017-01-25] MEDS: HCTZ PO SCH (17:13)
--- NOTE | 2017-01-25 19:50 | Progress Note ---
Subjective - Reason for Consult Consult date: 01/25/17 Reason for consult: follow up - Chief Complaint Chief complaint: "I want to go to [facility]" 61 year old female seen for psychiatric evaluation while in the ER. Today patient is calm and cooperative during the assessment. She stated that she feels better today but remains depressed. She wants to be admitted to [facility] for further stabilization of depressive symptoms. She denies a plan to harm herself or others. She denies any side effects from the Celexa. Mental Status Exam - Vital signs Last Vital Signs Temp 97.9 F 01/25/17 16:27 Pulse 84 01/25/17 16:27 Resp 16 01/25/17 16:27 BP 131/82 01/25/17 16:27 Pulse Ox 96 01/25/17 16:27 Assessment and Plan MSE: Appearance: cooperative, calm Behavior: good eye contact Speech: regular rate and tone Mood: "depressed" Affect: congruent to mood Thought Process: linear Thought Content: denies HI/SI's and AVH's Motor Activity: ambulatory Cognition: A/Ox 3 Insight: fair Judgment: fair I Assessment and Plan mpression: MDD, recurrent severe. Today patient is calm and cooperative during the assessment. Denies SI's. Family dynamic issues. Recommendation/Plan: Proceed with transfer to [facility] for further stabilization. Continue Celexa 10 mg PO Daily for depression and PTSD. Risks of prolonged QT discussed. Risks of manic symptoms discussed. She reports multiple trials of mood stabilizers with poor response.
[2017-01-25] MEDS: TYLENOL PO PRN (22:31)
--- NOTE | 2017-01-26 09:45 | Discharge Summary ---
Providers - Providers Date of Admission: 01/22/17 10:30 Date of discharge: 01/26/17 Attending physician: ZACHARY HAY MD 01/22/17 17:17 Consult to Mental Health [CONS] Routine Reason For Exam: Depression, sucidal Place consult to:: Psychaitry Notified:: yes Was contact made?: Yes If yes, spoke with:: thony Primary care physician: TRENT GERARDO Hospitalization Reason for admission: chest pain, suicidal ideation Condition: Stable Pertinent studies: Cardiac stress test was negative Hospital course: 61-year-old -Citizen Of The [place] female with past medical history significant for bipolar disorder, major depressive disorder, hypertension, A. fib, medication noncompliance presented to the emergency department complaining that she is heaving voices. She said she heard from Devil which tell her "lay down and ", she heard from God "keep going". Patient also expressed suicidal ideation, stating that she wanted to drive towards train track and want to be strike by train and . Patient claimed she was diagnosed with A. fib 4 years ago and she to look Coumadin for a while and discontinued. She didn't have any symptoms after that. Patient has hypertension and taking no medications. She said she has been in and out of mental institutions and was treated for bipolar and major depression but she didn't take any medication for the last 1 year. Patient didn't know what medications she has been taking. Patient also complains left-sided chest pain, sharp to aching type pain, 6 out of 10 in intensity, with radiation to the right arm, associated with mild shortness of breath and nausea. Patient denied palpitation, diaphoresis, vomiting. Patient was admitted to the floor patient was started with antidepressant, psych consult appreciated. She was started also with blood pressure medications , pain control. Cardiac stress test was done and no ischemia. Patient didn't have any chest pain after that. Psychiatrically cleared her for discharge and recommended outpatient mental health follow-up. Patient said she is going to [facility] after discharge. Patient does hemodynamically stable at the time of discharge. Patient's questions and concerns were addressed. Patient's medications were reviewed and adjusted. Disposition: [id number] TO HOME OR SELFCARE Time spent for discharge: 31 minutes - Discharge Diagnoses (1) Bipolar disorder Status: Acute Qualifiers: Active/Remission status: currently active Current bipolar episode type: depressed Current episode severity: severe Psychotic features: with psychotic features Most recent bipolar episode type: M Qualified Code(s): F31.5 - Bipolar disorder, current episode depressed, severe, with psychotic features (2) Chest pain Status: Acute Qualifiers: Chest pain type: unspecified Ischemic chest pain type: I Qualified Code(s ): R07.9 - Chest pain, unspecified (3) Suicidal ideation Status: Acute (4) Uncontrolled hypertension Status: Acute Core Measure Documentation - Palliative Care Palliative Care/ Comfort Measures: Not Applicable - Core Measures Any of the following diagnoses?: none Exam - Physical Exam Narrative exam: Not in cardiopulmonary distress. The patient is obese. Vital signs as documented. Head exam is unremarkable. No scleral icterus . Neck is without jugular venous distension, thyromegaly, or carotid bruits. Lungs are clear to auscultation. Cardiac exam reveals regular rate and Rhythm. First and second heart sounds normal. No murmurs, rubs or gallops. Abdominal exam reveals normal bowel sounds, no masses, no organomegaly and no aortic enlargement. Extremities are nonedematous and both femoral and pedal pulses are normal. CUSTOMER SUCCESS ASSOCIATE: Alert and oriented 3. No focal weakness. - Constitutional Vitals: Temp Pulse Resp BP Pulse Ox 98.0 F 99 H 20 140/81 96 01/26/17 08:00 01/26/17 08:00 01/26/17 08:00 01/26/17 08:00 01/26/17 08:00 Plan Activity: no restrictions Weight Bearing Status: Full Weight Bearing Diet: low cholesterol, low salt Follow up with: TRENT GERARDO MD [Primary Care Provider] - 3-5 Days Prescriptions: amLODIPine [Norvasc] 10 mg PO QDAY #30 tablet Citalopram [celeXA] 10 mg PO QDAY #30 tablet Hydrochlorothiazide [HCTZ] 25 mg PO QDAY #30 tablet
[2017-01-26] MEDS: celeXA PO SCH (10:25)
[2017-01-26] MEDS: NORVASC PO SCH (10:25)
[2017-01-26] MEDS: HCTZ PO SCH (10:25)
[2017-01-26] MEDS: XANAX PO PRN ×2 (12:17→21:37)
[2017-01-26] MEDS ORDERED: HABITROL TD SCH (13:00)
[2017-01-26] MEDS: LOVENOX SUB-Q SCH (14:58)
--- NOTE | 2017-01-26 20:25 | Progress Note ---
Subjective - Reason for Consult Consult date: 01/26/17 Reason for consult: follow up - Chief Complaint Chief complaint: "I want to go home" 61 year old female seen for psychiatric evaluation while on the medical floor. Today patient is calm and cooperative during the assessment. She plans to seek outpatient treatment for depression. She has maintained denial of suicidal ideation. No psychotic symptoms reported. She denies any side effects from the Celexa. She plans to return to her son's house as they have worked things out. She denies safety concerns. Mental Status Exam - Vital signs Last Vital Signs Temp 98 F 01/26/17 16:15 Pulse 100 H 01/26/17 16:15 Resp 18 01/26/17 16:15 BP 133/87 01/26/17 16:15 Pulse Ox 98 01/26/17 16:15 Assessment and Plan MSE: Appearance: cooperative, calm Behavior: good eye contact Speech: regular rate and tone Mood: "good" Affect: constricted Thought Process: linear Thought Content: denies HI/SI and AVH's Motor Activity: ambulatory Cognition: A/Ox 3 Insight: fair Judgment: fair I Assessment and Plan mpression: MDD, recurrent severe. Today patient is calm and cooperative during the assessment. Denies SI. Family dynamic issues but has resolved the housing arrangement issue with her son and [id number]. There are no acute safety concerns. She has consistently denies suicidal ideation. She voices goal oriented thinking and planning. She reports having the support of her [id number] She expresses her plan of seeking treatment for depression on an outpatient basis. Recommendation/Plan: Rescind 1013. She no longer meets criteria. Recommend continuing Celexa 10 mg PO Daily for depression and PTSD. Outpatient mental health referrals provided
--- NOTE | 2017-01-27 07:20 | Progress Note ---
Assessment and Plan Assessment and plan: Major depression, bipolar disorder, suicidal ideation - Psych consult appreciated - On Celexa - Patient is on 1013 - Plan is to send to inpatient psychiatry Anxiety - Patient is on home dose of Xanax Chest pain -Cardiac enzymes are negative -Stress test is negative History of A. fib -Patient is currently in sinus rhythm and rate is controlled Hypertension - Uncontrolled - Add HCTZ Hypokalemia - Resolved DVT prophylaxis - On Lovenox Disposition - Patient is cleared medically to be transferred to inpatient psych facility. - Patient Problems (1) Bipolar disorder Current Visit: Yes Status: Acute Qualifiers: Active/Remission status: currently active Current bipolar episode type: depressed Current episode severity: severe Psychotic features: with psychotic features Most recent bipolar episode type: M Qualified Code(s): F31.5 - Bipolar disorder, current episode depressed, severe, with psychotic features (2) Chest pain Current Visit: Yes Status: Acute Qualifiers: Chest pain type: unspecified Ischemic chest pain type: I Qualified Code(s ): R07.9 - Chest pain, unspecified (3) Suicidal ideation Current Visit: Yes Status: Acute (4) Uncontrolled hypertension Current Visit: Yes Status: Acute History Interval history: Patient was seen and evaluated this morning, patient denied suicidal ideation. Hospitalist Physical - Physical exam Narrative exam: Not in cardiopulmonary distress. The patient is obese. Vital signs as documented. Head exam is unremarkable. No scleral icterus . Neck is without jugular venous distension, thyromegaly, or carotid bruits. Lungs are clear to auscultation. Cardiac exam reveals regular rate and Rhythm. First and second heart sounds normal. No murmurs, rubs or gallops. Abdominal exam reveals normal bowel sounds, no masses, no organomegaly and no aortic enlargement. Extremities are nonedematous and both femoral and pedal pulses are normal. NEWSAGENT: Alert and oriented 3. No focal weakness. - Constitutional Vitals: Temp Pulse Resp BP Pulse Ox 98.3 F 98 H 20 126/61 95 01/26/17 23:22 01/26/17 23:22 01/26/17 23:22 01/26/17 23:22 01/26/17 23:22 Results - Labs CBC & Chem 7: 01/24/17 05:43 01/24/17 05:43 Labs: Laboratory Last Values WBC 6.4 K/mm3 (4.5-11.0) 01/24/17 05:43 RBC 4.65 M/mm3 (3.65-5.03) 01/24/17 05:43 Hgb 11.6 gm/dl (10.1-14.3) 01/24/17 05:43 Hct 36.0 % (30.3-42.9) 01/24/17 05:43 MCV 77 fl (79-97) L 01/24/17 05:43 MCH 25 pg (28-32) L 01/24/17 05:43 MCHC 32 % (30-34) 01/24/17 05:43 RDW 15.9 % (13.2-15.2) H 01/24/17 05:43 Plt Count 272 K/mm3 (140-440) 01/24/17 05:43 Lymph % (Auto) 37.5 % (13.4-35.0) H 01/24/17 05:43 [place] % (Auto) 7.5 % (0.0-7.3) H 01/24/17 05:43 Eos % (Auto) 2.5 % (0.0-4.3) 01/24/17 05:43 Baso % (Auto) 1.0 % (0.0-1.8) 01/24/17 05:43 Lymph # 2.4 K/mm3 (1.2-5.4) 01/24/17 05:43 [place] # 0.5 K/mm3 (0.0-0.8) 01/24/17 05:43 Eos # 0.2 K/mm3 (0.0-0.4) 01/24/17 05:43 Baso # 0.1 K/mm3 (0.0-0.1) 01/24/17 05:43 Seg Neutrophils % 51.5 % (40.0-70.0) 01/24/17 05:43 Seg Neutrophils # 3.3 K/mm3 (1.8-7.7) 01/24/17 05:43 PT 13.3 Sec. (12.2-14.9) 01/21/17 22:52 INR 0.96 (0.87-1.13) 01/21/17 22:52 APTT 31.0 Sec. (24.2-36.6) 01/21/17 22:52 Sodium 142 mmol/L (137-145) 01/24/17 05:43 Potassium 3.8 mmol/L (3.6-5.0) D 01/24/17 05:43 Chloride 103.9 mmol/L (98-107) 01/24/17 05:43 Carbon Dioxide 29 mmol/L (22-30) 01/24/17 05:43 Anion Gap 13 mmol/L 01/24/17 05:43 BUN 14 mg/dL (7-17) 01/24/17 05:43 Creatinine 0.5 mg/dL (0.7-1.2) L 01/24/17 05:43 Estimated GFR > 60 ml/min 01/24/17 05:43 BUN/Creatinine Ratio 28.00 % 01/24/17 05:43 Glucose 93 mg/dL (65-100) 01/24/17 05:43 Calcium 8.5 mg/dL (8.4-10.2) 01/24/17 05:43 Troponin T < 0.010 ng/mL (0.00-0.029) 01/22/17 04:28 HCG, Qual Negative (Negative) 01/21/17 22:52 Urine Opiates Screen Presumptive negative 01/22/17 12:52 Urine Methadone Screen Presumptive negative 01/22/17 12:52 Ur Barbiturates Screen Presumptive negative 01/22/17 12:52 Ur Phencyclidine Scrn Presumptive negative 01/22/17 12:52 Ur Amphetamines Screen Presumptive negative 01/22/17 12:52 U Benzodiazepines Scrn Presumptive negative 01/22/17 12:52 Urine Cocaine Screen Presumptive negative 01/22/17 12:52 U Marijuana (THC) Screen Presumptive positive 01/22/17 12:52 Drugs of Abuse Note Disclamer 01/22/17 12:52
[2017-01-27 09:57] VITALS: BP 121/86
--- NOTE | 2017-01-27 13:44 | Query- Chest Pain ---
Alicia Jacobs Date:____01/27/2017 Erica/CDS:___Irene Phone#: [phone] Exercise your independent professional judgment when responding to query. Questions asked do not imply a particular answer is desired or expected. We greatly appreciate your clarification on this issue. Clinical Documentation States: 61 year old female was admitted on 01/22/2017. The Discharge summary states "(2) Chest pain Status: Acute Qualifiers: Chest pain type: unspecified Ischemic chest pain type: I Qualified Code(s ): R07.9 - Chest pain, unspecified." The ED note states "Not withstanding this the patient states that she has chest pain on exertion which started yesterday and lasted for 2-1/2 hours. While I was talking to her she said that it actually was still present. She states the pain radiates to her right arm. She does not complain of associated symptoms." Please document the etiology of Chest Pain: [ ] Myocardial Infarction [ ] Pneumonia [ ] Mediastinitis [ x] Costochondritis [ ] Pulmonary Embolism [ ] Coronary Artery Disease [ ] GERD [ ] Other: [ ] Comment/Explanation: Present on Admission: [ x] Yes (Y) [ ] Clinically undeterminable (W) [ ] No(N) Please document response in your Progress Notes and/or Discharge Summary and indicate if the condition was present on admission. EVI
--- NOTE | 2017-01-27 14:07 | Progress Note ---
Subjective - Reason for Consult Consult date: 01/27/17 Reason for consult: Psychiatry Follow-up - Chief Complaint Chief complaint: "I am going home" 61 year old female seen for psychiatric evaluation while on the medical floor. Today patient is calm and cooperative during the assessment. She stated that she will be moving with her son once discharged. She stated that they have worked out their differences. She denies SI/HI's, AVH's, and depression. Mental Status Exam - Vital signs Last Vital Signs Temp 98.1 F 01/27/17 07:00 Pulse 109 H 01/27/17 07:00 Resp 19 01/27/17 07:00 BP 121/86 01/27/17 07:00 Pulse Ox 96 01/27/17 07:00 - Exam Narrative exam: MSE: Appearance: cooperative, calm Behavior: good eye contact Speech: regular rate and tone Mood: "better" Affect: congruent to mood Thought Process: linear Thought Content: denies HI/SI's and AVH's Motor Activity: ambulatory Cognition: A/Ox 3 Insight: fair Judgment: fair Assessment and Plan Impression: MDD, recurrent severe. Today patient is calm and cooperative during the assessment. She denies SI/HI's. Patient is no threat to self or others. Recommendation/Plan: Continue Celexa 10 mg PO Daily for depression and PTSD. Risks of prolonged QT discussed. Risks of manic symptoms discussed. Patient can follow-up outpatient psy services.
== END 2017-01-27 11:30 | disposition home or self-care (01) | DRG 885 ==
LOC: ED 21:58 → EEVIPCON 01-22 10:30 → 4A 01-22 10:30 → UNDODISIN 01-26 21:30 → 3A 01-26 21:53
PROVIDERS: ADMIT Internal Medicine; ATTEND Internal Medicine
DX: F31.5 Bipolar disorder, current episode depressed, severe, with psychotic features (principal); R45.851 Suicidal ideations; M94.0 Chondrocostal junction syndrome [Tietze]; E87.6 Hypokalemia; I10 Essential (primary) hypertension; F41.9 Anxiety disorder, unspecified; F43.10 Post-traumatic stress disorder, unspecified; I48.91 Unspecified atrial fibrillation; Z91.14 Patient's other noncompliance with medication regimen
CPT/HCPCS: 36415; 71010; 78452; 80048; 80307; 84484; 84703; 85025; 85610; 85730; 93005; 93010; 93017; 99285; 99406; A9502; J0360; J1650; J2270; J2785

== ENCOUNTER 2017-07-08 03:58 | Emergency (ER) | payer BC, MEDICARE ==
[2017-07-08 04:15] VITALS: BP 145/79
--- NOTE | 2017-07-08 07:33 | Emergency Department Report ---
ED ENT HPI - General Chief complaint: Dental/Oral Stated complaint: TOOTH PAIN Time Seen by Provider: 07/08/17 07:25 Source: patient Mode of arrival: Ambulatory Limitations: No Limitations - History of Present Illness Initial comments: 61-year-old female past medical history hypertension, depression, GERD presents with complaint of acute on chronic right-sided toothache. Patient denies pus or blood drainage from mouth speaking in full sentences. Denies fevers or chills. States she has had a cavity there for some time but it is painful within the last week. Patient states she has an appointment to see a dentist in 48 hours. MD complaint: tooth pain Onset/Timin -: week(s) Location: tooth # 1 - dental cavity here Severity: moderate Severity scale (0 -10): 6 Consistency: constant Improves with: none Worsens with: none Context- Dental: history of dental caries, poor dental care - Related Data Home Medications Medication Instructions Recorded Confirmed Last Taken ALPRAZolam [Xanax TAB] 2 mg PO TID PRN 01/22/17 01/22/17 Unknown Previous Rx's Medication Instructions Recorded Last Taken Type Citalopram [celeXA] 10 mg PO QDAY #30 tablet 01/26/17 Unknown Rx Hydrochlorothiazide [HCTZ] 25 mg PO QDAY #30 tablet 01/26/17 Unknown Rx amLODIPine [Norvasc] 10 mg PO QDAY #30 tablet 01/26/17 Unknown Rx Acetaminophen/Codeine [Tylenol 1 tab PO Q6H PRN #12 tab 07/08/17 Unknown Rx /Codeine # 3 tab] Amoxicillin [Trimox CAP] 500 mg PO Q8H #30 capsule 07/08/17 Unknown Rx Benzocaine [Orajel Liquid 20%] 1 ml MM Q6HR PRN #1 bottle 07/08/17 Unknown Rx Chlorhexidine Mouthwash [Peridex] 15 ml MM BID #1 bottle 07/08/17 Unknown Rx Allergies Allergy/AdvReac Type Severity Reaction Status Date / Time No Known Allergies Allergy Unverified 01/21/17 22:29 ED Dental HPI - General Chief complaint: Dental/Oral Stated complaint: TOOTH PAIN Time Seen by Provider: 07/08/17 07:25 Source: patient Mode of arrival: Ambulatory Limitations: No Limitations - Related Data Home Medications Medication Instructions Recorded Confirmed Last Taken ALPRAZolam [Xanax TAB] 2 mg PO TID PRN 01/22/17 01/22/17 Unknown Previous Rx's Medication Instructions Recorded Last Taken Type Citalopram [celeXA] 10 mg PO QDAY #30 tablet 01/26/17 Unknown Rx Hydrochlorothiazide [HCTZ] 25 mg PO QDAY #30 tablet 01/26/17 Unknown Rx amLODIPine [Norvasc] 10 mg PO QDAY #30 tablet 01/26/17 Unknown Rx Acetaminophen/Codeine [Tylenol 1 tab PO Q6H PRN #12 tab 07/08/17 Unknown Rx /Codeine # 3 tab] Amoxicillin [Trimox CAP] 500 mg PO Q8H #30 capsule 07/08/17 Unknown Rx Benzocaine [Orajel Liquid 20%] 1 ml MM Q6HR PRN #1 bottle 07/08/17 Unknown Rx Chlorhexidine Mouthwash [Peridex] 15 ml MM BID #1 bottle 07/08/17 Unknown Rx Allergies Allergy/AdvReac Type Severity Reaction Status Date / Time No Known Allergies Allergy Unverified 01/21/17 22:29 ED Review of Systems ROS: Stated complaint: TOOTH PAIN Other details as noted in HPI Constitutional: denies: chills, fever Eyes: denies: eye pain, eye discharge, vision change ENT: dental pain. denies: ear pain, throat pain Respiratory: denies: cough, shortness of breath, wheezing Cardiovascular: denies: chest pain, palpitations Endocrine: no symptoms reported Gastrointestinal: denies: abdominal pain, nausea, diarrhea Genitourinary: denies: urgency, dysuria, discharge Musculoskeletal: denies: back pain, joint swelling, arthralgia Skin: denies: rash, lesions Neurological: denies: headache, weakness, paresthesias Psychiatric: denies: anxiety, depression Hematological/Lymphatic: denies: easy bleeding, easy bruising ED Past Medical Hx - Past Medical History Previous Medical History?: Yes Hx Hypertension: Yes Hx Psychiatric Treatment: Yes Additional medical history: a fib, ddd, - Social History Smoking Status: Unknown if ever smoked - Medications Home Medications: Home Medications Medication Instructions Recorded Confirmed Last Taken Type ALPRAZolam [Xanax TAB] 2 mg PO TID PRN 01/22/17 01/22/17 Unknown History Citalopram [celeXA] 10 mg PO QDAY #30 tablet 01/26/17 Unknown Rx Hydrochlorothiazide [HCTZ] 25 mg PO QDAY #30 tablet 01/26/17 Unknown Rx amLODIPine [Norvasc] 10 mg PO QDAY #30 tablet 01/26/17 Unknown Rx Acetaminophen/Codeine [Tylenol 1 tab PO Q6H PRN #12 tab 07/08/17 Unknown Rx /Codeine # 3 tab] Amoxicillin [Trimox CAP] 500 mg PO Q8H #30 capsule 07/08/17 Unknown Rx Benzocaine [Orajel Liquid 20%] 1 ml MM Q6HR PRN #1 bottle 07/08/17 Unknown Rx Chlorhexidine Mouthwash [Peridex] 15 ml MM BID #1 bottle 07/08/17 Unknown Rx ED Physical Exam - General Limitations: No Limitations General appearance: alert, in no apparent distress - Head Head exam: Present: atraumatic, normocephalic - Eye Eye exam: Present: normal appearance, PERRL, EOMI - ENT ENT exam: Present: mucous membranes moist - Expanded ENT Exam Expanded Mouth exam: Present: normal external inspection Teeth exam: Present: dental tenderness # 1 - Dental Tenderness (cavity here) Throat exam: Positive: normal inspection - Neck Neck exam: Present: normal inspection, full ROM - Respiratory Respiratory exam: Present: normal lung sounds bilaterally. Absent: respiratory distress - Cardiovascular Cardiovascular Exam: Present: regular rate, normal rhythm. Absent: systolic murmur, diastolic murmur, rubs, gallop - GI/Abdominal GI/Abdominal exam: Present: soft, normal bowel sounds - Extremities Exam Extremities exam: Present: normal inspection - Back Exam Back exam: Present: normal inspection - Neurological Exam Neurological exam: Present: alert, oriented X3, CN II-XII intact, normal gait - Psychiatric Psychiatric exam: Present: normal affect, normal mood - Skin Skin exam: Present: warm, dry, intact, normal color. Absent: rash ED Course Vital Signs 07/08/17 04:10 Temperature 98.5 F Pulse Rate 77 Respiratory 20 Rate Blood Pressure 145/79 O2 Sat by Pulse 98 Oximetry ED Medical Decision Making - Medical Decision Making A/P: dental cavitiy, toothach 1- Motrin when necessary, amoxicillin ten-day course, Orajel when necessary, Peridex mouthwash daily basis, short course codeine when necessary 2- I provided patient with information for multiple dental clinics to follow up and stressed the importance of dental follow-up as he has multiple cavities that require dental fixation or instrumentation 3- no clinical signs of facial abscess, no Davon's angina, no induration or cellulitis of floor of mouth or tongue 4- patient able to tolerate by mouth before discharge 5- no signs of facial infection. Advised patient that if he does not take antibiotics with follow-up with a dentist as soon as possible that a can result in potentially serious or dangerous infection to develop in jaw or face. Patient states that he understood these instructions. I advised patient to return to the ED for any persistent unrelenting nausea or vomiting fever or chills or headaches Critical care attestation.: If time is entered above; I have spent that time in minutes in the direct care of this critically ill patient, excluding procedure time. ED Disposition Clinical Impression: Toothache, Dental cavity Disposition: TO HOME OR SELFCARE Is pt being admited?: No Does the pt Need Aspirin: No Condition: Stable Instructions: Dental Caries (ED) Prescriptions: Acetaminophen/Codeine [Tylenol /Codeine # 3 tab] 1 tab PO Q6H PRN #12 tab PRN Reason: Pain Amoxicillin [Trimox CAP] 500 mg PO Q8H #30 capsule Benzocaine [Orajel Liquid 20%] 1 ml MM Q6HR PRN #1 bottle PRN Reason: Toothache Chlorhexidine Mouthwash [Peridex] 15 ml MM BID #1 bottle Referrals: [facility] [Outside] - 3-5 Days [facility] [Outside] - 3-5 Days Time of Disposition: 07:40
== END 2017-07-08 07:50 | disposition home or self-care (01) ==
LOC: ED 03:58
DX: K02.9 Dental caries, unspecified (principal); I10 Essential (primary) hypertension
CPT/HCPCS: 99282

== ENCOUNTER 2017-10-13 08:43 | Emergency (ER) | payer BC ==
[2017-10-13 09:02] VITALS: BP 122/83
[2017-10-13] MEDS ORDERED: ASPIRIN PO ONE (09:02)
[2017-10-13 09:26] LABS: Basophils # (Auto) 0.1 K/mm3 (0.0-0.1); Eosinophils # (Auto) 0.1 K/mm3 (0.0-0.4); Hematocrit 39.7 % (30.3-42.9); Hemoglobin 13.2 gm/dl (10.1-14.3); Lymphocytes # (Auto) 2.4 K/mm3 (1.2-5.4); Lymphocytes % (Auto) 35.6 % (13.4-35.0); Mean Corpuscular HGB Conc 33 % (30-34); Mean Corpuscular Hemoglobin 26 pg (28-32); Mean Corpuscular Volume 79 fl (79-97); Monocytes # (Auto) 0.5 K/mm3 (0.0-0.8); Monocytes % (Auto) 7.8 % (0.0-7.3); Platelet Count 263 K/mm3 (140-440); Red Blood Count 5.05 M/mm3 (3.65-5.03); Red Cell Distribution Width 15.2 % (13.2-15.2)
[2017-10-13 09:44] LABS: BUN/Creatinine Ratio 20; Blood Urea Nitrogen 14 mg/dL (7-17); Hemolysis Index 3
== END 2017-10-13 09:30 | disposition left against medical advice (07) ==
LOC: ED 08:43
DX: R07.9 Chest pain, unspecified (principal); Z53.21 Procedure and treatment not carried out due to patient leaving prior to being seen by health care provider
CPT/HCPCS: 36415; 80048; 84484; 85025; 93005; 93010

== ENCOUNTER 2020-01-20 08:47 | Outpatient (CLI) | payer BC | END 2020-01-20 08:48 | disposition home or self-care (01) | LOC: MAMMO 08:47 | PROVIDERS: ATTEND Family Medicine | DX: Z12.31 Encounter for screening mammogram for malignant neoplasm of breast (principal) | CPT/HCPCS: 77067 ==

== ENCOUNTER 2021-08-24 11:59 | Outpatient (CLI) | payer MEDICARE ==
--- NOTE | 2021-08-24 13:48 | XRay Report ---
LEFT SHOULDER 3 VIEWS INDICATION / CLINICAL INFORMATION: PAIN IN LEFT SHOULDER. COMPARISON: None available. FINDINGS: BONES / JOINT(S): There are moderate degenerative changes involving the acromioclavicular joint, ante rior acromion and greater tuberosity of the humerus. There is narrowing of the distance between the u ndersurface of the acromion and the humeral head on the externally rotated view. There are mild degen erative changes involving the glenohumeral joint inferiorly. There is no evidence of acute fracture, subluxation or destructive lesion. SOFT TISSUES: No significant abnormality. ADDITIONAL FINDINGS: The visualized left lung is clear. Signer Name: Deon Hare MD Signed: 08/24/2021 1:44 PM Workstation Name: [id number]
== END 2021-08-24 12:00 | disposition home or self-care (01) ==
LOC: XRAY 11:59
PROVIDERS: ATTEND Orthopaedic Surgery
DX: M19.012 Primary osteoarthritis, left shoulder (principal)